=== PATIENT | male | born 1960 | race Caucasian/White ===

== ENCOUNTER → 2018-01-05 15:21 | Outpatient (CLI) | payer SELFPAY | DX: M54.5 Low back pain (principal) | CPT/HCPCS: 72148 ==

== ENCOUNTER → 2018-11-17 12:03 | Outpatient (CLI) | payer BC, SELFPAY ==
--- NOTE | 2018-11-17 12:30 | MRI_ITS ---
STUDY: MRI CERVICAL SPINE WITH AND WITHOUT CONTRAST REASON FOR EXAM: Male, 58 years old. Difficulty walking, abnormal reflexes TECHNIQUE: Standardized fat and water weighted pulse sequences were obtained in the sagittal and axial following administration of 20ml IV Dotarem. COMPARISON: None FINDINGS: Craniocervical junction and cervical spine are intact and aligned. Diffuse marrow is normal with subchondral and endplate degenerative changes. Paraspinous soft tissues are normal. C2-C3 has mild spondylotic cord compression. There is moderate right foraminal stenosis with patent left foramen. C3-C4 has ventral spondylosis with moderate cord compression. Foramina are patent bilaterally. C4-C5 has mild cord compression. Foramina are patent bilaterally. C5-C6 has uncinate and facet hypertrophy and thickening of ligamentum flavum with [id number] cord compression. There is severe bilateral foraminal stenosis. C6-C7 has asymmetric left predominant uncinate and facet hypertrophy with moderate left-sided and mild central cord compression. There is severe left and moderate to severe right foraminal stenosis. C7-T1 has patent canal and foramina. Spinal cord is flattened at the compressing levels. Cord size and volume and signal are normal. Spinal enhancement is normal. There are no enhancing cord lesions. MRI/Spine Cervical W/WO Contrast IMPRESSION: 1. Multilevel moderate spondylotic cord compression. Neurosurgical referral is advised. Electronically Signed: Gladys Parmar, at 17:34 EDT Tel , Service support ,
--- NOTE | 2018-11-17 12:30 | MRI_ITS ---
STUDY: MRI BRAIN WITH AND WITHOUT CONTRAST REASON FOR EXAM: Male, 58 years old. Abnormal walking and reflexes TECHNIQUE: Standardized multiplanar fat and water weighted pulse sequences were obtained. 20ml IV Dotarem was administered for the contrast portion of the examination. COMPARISON: None. FINDINGS: Normal size of the ventricles and extra-axial spaces for the patient's age. Normal white matter tracts of the supratentorial brain. Normal bilateral basal ganglia. Normal thalami. There is no extra-axial fluid accumulation. Normal flow voids within the major intracranial circulation suggesting patency by spin echo criteria. Normal venous enhancement. There is no enhancing intra-axial or extra-axial abnormality. Normal sella turcica, pituitary gland, infundibular stalk, optic chiasm and hypothalamus. Normal tectal plate and pineal gland. Normal midbrain, alisa and medulla. Normal cerebellum. Normal basal cisterns. Normal bilateral temporal bones. Normal bilateral internal auditory canals. No demonstrated orbital abnormality, within the constraints of a routine brain study. Normal visualized paranasal sinuses. Normal calvarium and skull base. Normal visualized soft tissue structures. Normal visualized upper cervical spine. MRI/Brain W/WO Contrast IMPRESSION: Normal unenhanced and enhanced MRI of the brain. Electronically Signed: Gladys Parmar, at 17:29 EDT Tel , Service support ,
[2018-11-17 15:23] LABS: Hemoglobin A1c 6.4 % (4.2-6.3)
[2018-11-17 15:25] LABS: Vitamin B12 509 pg/mL (211-911)
[2018-11-17 15:28] LABS: ALB/GLOB Ratio 0.9 RATIO (0.9-2.4); AST(SGOT) 35 U/L (15-37); Alanine Aminotransfer ALT/SGPT 48 U/L (16-61); Albumin, Serum 3.7 g/dL (3.2-5.0); Alkaline Phosphatase 85 U/L (45-117); Anion Gap 7 (5-15); BUN 17 mg/dL (7-18); BUN/Creat Ratio 15.9 RATIO (10-20); Calcium,Total 9.5 mg/dL (8.5-10.1); Chloride 104 mmol/L (98-107); Creatinine, Serum 1.07 mg/dL (0.70-1.30); EST Glomerular Filtration Rate 76 mL/min (>60); Est Glom Filt Rate - Afr Amer 92 mL/min (>60); Globulin 3.9 g/dL (2.2-4.2); Glucose 65 mg/dL (74-106); Potassium 4.1 mmol/L (3.5-5.1); Protein, Total 7.6 g/dL (6.4-8.2); Sodium Level 142 mmol/L (136-145); T4 Total, Thyroxin 9.7 ug/dL (4.5-12.1); Thyroid Stim Hormone (TSH) 1.95 uIU/mL (0.358-3.74)
[2018-11-20 16:07] LABS: Albumin 3.5 g/dL (2.9-4.4); Alpha-1-Globulins 0.3 g/dL (0.0-0.4); Gamma Globulin 0.7 g/dL (0.4-1.8); Immunoglobulin A 149 mg/dL (90-386); Immunoglobulin G 719 mg/dL (700-1600); Immunoglobulin M 77 mg/dL (20-172); PROEL- TOTAL PROTEIN 6.7 g/dL (6.0-8.5)
== END ==
DX: M21.371 Foot drop, right foot (principal); M54.5 Low back pain; R29.2 Abnormal reflex; G62.9 Polyneuropathy, unspecified; Z13.1 Encounter for screening for diabetes mellitus
CPT/HCPCS: 36415; 70553; 72156; 80053; 82607; 82784; 83036; 83921; 84165; 84436; 84443; 86334; A9575